=== PATIENT | female | born 1950 | race Caucasian/White ===

== ENCOUNTER 2017-03-09 12:42 | Outpatient (CLI) | payer BC, OTHER ==
--- NOTE | 2017-03-10 13:53 | OP Clinic Progress Note ---
REFERRING PHYSICIAN: Dr. Landy Ugalde REASON FOR VISIT: Mackenzie Hale returns for follow up on her seronegative rheumatoid arthritis. She is doing much better. Enbrel has finally kicked in. She has no significant joint swelling, warmth, tenderness, morning stiffness or pain. No new deformities. Low back pain is also improved. She is walking better and is now 3 over 10. Lumbar spine films did show extensive spondylosis. She also had aortic calcifications and multi-level degenerative disk disease. PAST MEDICAL HISTORY: 1. Hypertension. 2. GERD. 3. COPD. 4. Rheumatoid arthritis. 5. Type 2 diabetes. 6. Fatty liver. 7. Right humeral fracture. 8. Pneumonia. 9. Presently, a new diagnosis of hyperlipidemia. PRESENT MEDICATIONS: 1. Lipitor. 2. Gabapentin. 3. Voltaren. 4. Flexeril. 5. Tramadol. 6. DuoNeb. 7. Proair. 8. Prilosec. 9. Diovan/HCTZ. 10. Amaryl. 11. Promethazine. 12. Enbrel. REVIEW OF SYSTEMS: As above. PHYSICAL EXAMINATION: GENERAL: She looks well. VITAL SIGNS: Vital signs are stable. She is afebrile. Weight: 173. Height: 5 feet 7 inches. T: 98, Heart rate 80, BP: 120/69. HEENT: Sclerae are anicteric. Conjunctivae are pink. No stomatitis or glossitis. LUNGS: Lungs have some diffuse wheezing. No E to A changes. No rubs. HEART: Regular rhythm. Normal S1 and S2. ABDOMEN: Soft and nontender. SKIN: No rashes or nodules. PERIPHERAL JOINTS: DIPs, PIPs, MCPs, wrists, elbows, shoulders, hips, knees, ankles, and feet with no synovitis. DIAGNOSTIC STUDIES: Labs from September 08 are reviewed. BHUPINDER screen was negative. C-reactive protein was 0.9. Creatinine was normal. Glucose was 238. Sedimentation rate was 30. White count was 8.2, hemoglobin 12.5, platelet count 407,000. The patient brings in labs from January 16, glucose was 79, creatinine and liver functions were normal. Lipid profile, cholesterol 248, triglycerides 203. Urinalysis, no blood or protein. CBC, white count 8.1, hemoglobin 12.5, platelets slightly elevated. Hemoglobin A1C is 7. IMPRESSION: 1. Seronegative rheumatoid arthritis, improved on Enbrel. 2. High risk drug, no evidence of drug toxicity. PLAN: No changes at this time. I refilled her Enbrel and I will see her back in for months. No need for labs today. Thank you very much. cc: Dr. Landy CELESTIN
== END 2017-03-09 12:43 ==
LOC: RHEU 12:42
PROVIDERS: ATTEND Internal Medicine
DX: M06.9 Rheumatoid arthritis, unspecified (principal)
CPT/HCPCS: 99214

== ENCOUNTER → 2017-09-07 | Outpatient (CLI) | payer MEDICARE, OTHER ==
--- NOTE | 2017-09-07 14:43 | OP Clinic Progress Note ---
REASON FOR VISIT: Mackenzie Hale returns for follow up on her seronegative rheumatoid arthritis of multiple joints. She is doing significantly better. She has significantly less morning stiffness and pain, maybe 2 over 10, and morning stiffness of 15 to 30 minutes. She is active again riding her bike. She has had no new joint deformities or other associated symptoms such as numbness, tingling, skin rashes or nodules. Low back pain continues to be an issue but also improved. She continues to walk and exercise. PAST MEDICAL HISTORY: 1. Seronegative rheumatoid arthritis. 2. Lumbar spondylosis without myelopathy. 3. Hypertension. 4. GERD. 5. COPD. 6. Type 2 diabetes. 7. Fatty liver. 8. History of right humeral fracture. 9. Pneumonia. 10. Hyperlipidemia. PRESENT MEDICATIONS: 1. Lipitor. 2. Gabapentin. 3. Flexeril. 4. DuoNeb. 5. ProAir. 6. Prilosec. 7. Diovan. 8. Hydrochlorothiazide. 9. Amaryl. 10. Promethazine. 11. Enbrel 50 mg subcutaneous weekly. REVIEW OF SYSTEMS: No fevers, chills, sweats, chest pain, shortness of breath, cough, wheezing, nausea, vomiting, or diarrhea. PHYSICAL EXAMINATION: GENERAL: On exam, she looks well. VITAL SIGNS: Weight: 177. T: 98.1, R: 20, heart rate 80, BP: 130/70. HEENT: Sclerae are anicteric. Conjunctivae are pink. No stomatitis or glossitis. LUNGS: Clear. HEART: Regular rhythm. ABDOMEN: Soft. VASCULAR: No edema or cyanosis. SKIN: No rashes or nodules. PERIPHERAL JOINTS: DIPs, PIPs, MCPs, wrists, elbows, shoulders, hips, knees, ankles, and feet show no synovitis. She does have a little tenderness at the PIPs and her left shoulder with hard bony swelling consistent with OA. IMPRESSION: 1. Seronegative rheumatoid arthritis. Doing well. 2. High risk drug. No evidence of toxicity. 3. Osteoarthritis of the hands. I have suggested she try Aleve. 4. Chronic low back pain. Continue exercise. PLAN: She will be seeing Dr. Landy Ugalde in the near future. I gave her a lab slip for a CBC, CMP, and sedimentation rate. I will see her back in 4 months. Thank you very much. cc: Dr. Landy CELESTIN
== END ==
LOC: RHEU 12:05
PROVIDERS: ATTEND Internal Medicine
DX: M06.09 Rheumatoid arthritis without rheumatoid factor, multiple sites (principal); Z79.899 Other long term (current) drug therapy
CPT/HCPCS: 99214; G0463

== ENCOUNTER 2018-08-09 12:38 | Outpatient (CLI) | payer MEDICARE, OTHER ==
--- NOTE | 2018-08-12 09:57 | OP Clinic Progress Note ---
REASON FOR VISIT: Mackenzie Hale returns for follow up of seronegative rheumatoid arthritis of multiple sites. Having previously failed all disease-modifying agents. When I last saw her in August 2017, she was doing quite well on Enbrel. Presently, she has been out of Enbrel for 4 months. She has morning stiffness lasting over 2 hours. Her pain is presently 6 to 7 over 10. She is finding it difficult to take care of her grandchildren, age 7 and 11, as well as household duties. She has not developed any new deformities. She has had recurrence of numbness and tingling in her hands and feet. Otherwise, rest of the systems reviewed, no fevers, chills, sweats, chest pain, shortness of breath, cough, nausea, vomiting, or diarrhea. She continues to have low back pain and it does not radiate. It is midline and chronic. PAST MEDICAL HISTORY: 1. Seronegative rheumatoid arthritis of multiple sites. 2. Lumbar spondylosis without myelopathy. 3. Hypertension. 4. GERD. 5. COPD. 6. Diabetes type 2. 7. Fatty liver. 8. History of right humeral fracture. 9. Pneumonia. 10. Hyperlipidemia. PRESENT MEDICATIONS: 1. Lipitor. 2. Gabapentin. 3. Flexeril. 4. DuoNeb. 5. ProAir. 6. Prilosec. 7. Diovan. 8. Hydrochlorothiazide. 9. Amaryl. 10. Promethazine. PHYSICAL EXAMINATION: GENERAL: On exam, she is in no distress. Comfortable. VITAL SIGNS: Height: 5 feet 7 inches. Weight: 176 pounds. T: 98.6, R: 20, heart rate 74, BP: 126/71. HEENT: Sclerae are anicteric. Conjunctivae are pink. No stomatitis or glossitis. LUNGS: Clear bilaterally with no crackles or wheezing. HEART: Regular rate and rhythm. ABDOMEN: Soft and nontender. VASCULAR: No edema or cyanosis. PERIPHERAL JOINTS: Reveals tenderness at the PIPs and MCPs, as well as the wrists, but no overt synovitis. Elbows and shoulders are tender. Left knee is swollen. Right knee is unremarkable. Both ankles are tender and warm and MTPs are tender. LABORATORIES: She brings in reports of recent blood work dated July 04, which was reviewed and scanned into the chart. Repeat testing of hepatitis C is negative. EKG, chest x-ray, and echocardiogram reports were also reviewed IMPRESSION: Seronegative rheumatoid arthritis, doing poorly. PLAN: We will resume her Enbrel. Best regards, cc: Dr. Landy CELESTIN
== END 2018-08-09 12:40 ==
LOC: RHEU 12:38
PROVIDERS: ATTEND Internal Medicine
DX: M06.9 Rheumatoid arthritis, unspecified (principal)
CPT/HCPCS: 99214; G0463